=== PATIENT | female | born 1980 | race Caucasian/White ===

== ENCOUNTER → 2017-10-05 | Outpatient (CLI) | payer BC ==
[2016-01-08 17:33] VITALS: BMI 25.6
[~2017-10-05] MED LIST: ACE3 PO; AUG875 PO; IBU800 PO; IBUP800T37 PO; LOR5/325 PO; MELA5TAB15 SL; OMEG1600; TRAZ50TA34 PO
[2017-10-05 09:54] LABS: PLATELET COUNT, AUTOMATED 199 K/uL (150-450)
== END ==
LOC: LAB 09:12
PROVIDERS: ATTEND Obstetrics & Gynecology
DX: O09.529 Supervision of elderly multigravida, unspecified trimester (principal); R82.79 Other abnormal findings on microbiological examination of urine
CPT/HCPCS: 36415; 85025; 86592; 86762; 86850; 86900; 86901; 87088; 87340

== ENCOUNTER → 2017-10-20 | Outpatient (CLI) | payer BC ==
[2016-01-08 17:33] VITALS: BMI 25.6
[~2017-10-20] MED LIST changes: +PREN-127 PO
== END ==
LOC: LAB 10:16
PROVIDERS: ATTEND Obstetrics & Gynecology
DX: O09.529 Supervision of elderly multigravida, unspecified trimester (principal)
CPT/HCPCS: 87491; 87591

== ENCOUNTER → 2017-12-15 | Outpatient (CLI) | payer BC ==
[2016-01-08 17:33] VITALS: BMI 25.6
== END ==
LOC: LAB 07:14
PROVIDERS: ATTEND Internal Medicine Nephrology
DX: N04.9 Nephrotic syndrome with unspecified morphologic changes (principal); N00-N99 Diseases of the genitourinary system; I10 Essential (primary) hypertension; R80.9 Proteinuria, unspecified
CPT/HCPCS: 36415; 82040; 82310; 82374; 82435; 82565; 82570; 82947; 84100; 84132; 84156; 84295; 84520

== ENCOUNTER → 2018-02-08 | Outpatient (CLI) | payer BC ==
[2016-01-08 17:33] VITALS: BMI 25.6
[~2018-02-08] MED LIST changes: +DIPH0.5D12 IM; +FLU60SYR36 IM; +RHO(150015 IM
--- NOTE | 2018-02-08 11:50 | RADIOLOGY IMAGING REPORT ---
FACILITY: [facility] [place] PATIENT NAME: Radha Jack : 1980 MR: [id number] V: [id number] EXAM DATE: ORDERING PHYSICIAN: BRUCE ALANIZ TECHNOLOGIST: [place] [facility] [place]ha [place] : 1980 Visit/Account:[id number] Date of Sevice: 02/08/2018 [facility] OB LIMITED HISTORY: Supervision of high risk of elderly multigravida COMPARISON: October 20, 2017 TECHNIQUE: Transabdominal imaging was performed for assessment of the fetus and maternal pelvic s tructures. Transvaginal imaging was not performed. FINDINGS: Intrauterine gestations: One. presentation: Cephalic. heart rate: 135 bpm. Amniotic fluid volume: Normal; LUIS 11.48 cm; MVP 4.23 cm. Placenta: Anterior. Uterus: Gravid, otherwise grossly unremarkable where visualized. Maternal adnexa/ovaries: Grossly unremarkable, ovaries not visualized. Cervix: Not imaged. Gestational Parameters: BPD: 7.33 cm, 98th percentile HC: 26.62 cm, 67th percentile AC: 24.88 cm, 85th percentile FL: 5.47 cm, 74th percentile Average ultrasound age (AUA): 29 weeks/ one days Estimated age based on LMP: 27 weeks/ four days Estimated weight (EFW): 1326 grams +/- 194 grams Anatomic Survey: Anatomic survey was not performed. IMPRESSION: Single viable fetus in cephalic presentation with an estimated gestational age by measurements of 29 weeks one day. Estimated gestational age based on LMP is 27 weeks and four days. Estimated weight is 1326 g. LUIS 11.48 cm, MVP 4.23 cm Report Dictated By: Shonda Grove MD at 02/08/2018 11:23 AM Report E-Signed By: Shonda Grove MD at 02/08/2018 11:45 AM WSN:[email or web address]
== END ==
LOC: RAD 09:11
PROVIDERS: ATTEND Obstetrics & Gynecology
DX: O09.529 Supervision of elderly multigravida, unspecified trimester (principal); Z3A.29 29 weeks gestation of pregnancy

== ENCOUNTER → 2018-02-09 | Outpatient (CLI) | payer BC ==
[2016-01-08 17:33] VITALS: BMI 25.6
== END ==
LOC: LAB 08:09
PROVIDERS: ATTEND Obstetrics & Gynecology
DX: Z34.92 Encounter for supervision of normal pregnancy, unspecified, second trimester (principal)
CPT/HCPCS: 36415; 82950; 85027

== ENCOUNTER → 2018-02-12 | Outpatient (CLI) | payer BC ==
[2016-01-08 17:33] VITALS: BMI 25.6
[~2018-02-12] MED LIST changes: +BLOO-1511 MC; +BLOO-960 MC; +LANC-165
== END ==
LOC: LAB 08:18
PROVIDERS: ATTEND Obstetrics & Gynecology
DX: O99.810 Abnormal glucose complicating pregnancy (principal)
CPT/HCPCS: 36415; 82951; 82952

== ENCOUNTER 2018-02-16 14:17 | Outpatient (RCR) | payer BC ==
[2016-01-08 17:33] VITALS: BMI 25.6
--- NOTE | 2018-02-16 16:17 | Medical Nutrition Therapy ---
Nutrition/Food History Breakfast: cereal, toast with PB, sweetened almond milk Lunch: leftovers or sandwich Dinner: ~ 2oz meat, pasta 1/2c veg Snacks: PM and HS: granola bar, cheese, nuts, sweets Nutritional Education Nutrition Education Topic: Diabetic Nutrition (gestational) Learning Readiness: Interested Teaching Methods: Discussion, Handout, Demonstration Response to Teaching: Verbalize understanding Teaching Recipient: Patient Nutrition Counseling: Reviewed glycemic response to CHO. Reviewed CHO foods and provided meal plan of 30gm CHO brkft, 45-60gm CHO lunch and supper with 15-30gm CHO PM and HS snacks. Encouraged pt to try lower CHO range and increase if hungary and Bg is within acceptable range. Advised pt to write down food eaten prior to BG reading if readings are over desired range. This can help identify problem foods. encouraged pt to eating high fiber CHO and add protein and/or fat with meals and snacks to decrease glycemic response. Pt is to call for f/u if BG is above desired range or pt having problems with meals or glucometer. Nutrition Monitoring & Eval RD Patient Assessment Time: [address] Assessment Type: RD Education Nutritional Comment: Provided 60 minutes diabetic education focusing on nutrition Copies To Copies to: BRUCE ALANIZ MD ; BABATUNDE JOHNSON Feb 16, 2018 16:17
== END 2018-03-23 ==
LOC: DIET 14:17
PROVIDERS: ATTEND Obstetrics & Gynecology
DX: Z71.3 Dietary counseling and surveillance (principal); O24.419 Gestational diabetes mellitus in pregnancy, unspecified control
CPT/HCPCS: G0108 ×2

== ENCOUNTER → 2018-03-15 | Outpatient (CLI) | payer BC ==
[2016-01-08 17:33] VITALS: BMI 25.6
--- NOTE | 2018-03-15 16:07 | RADIOLOGY IMAGING REPORT ---
[place] [facility] [place]IENT NAME: Radha Jack : 1980 MR: [id number] V: [id number] EXAM DATE: ORDERING PHYSICIAN: KEN RODRIGUEZ TECHNOLOGIST: Location: [facility] Patient: Radha Jack : 1980 Visit/Account:[id number] Date of Sevice: 03/15/2018 [facility] OB LIMITED HISTORY: Evaluate growth COMPARISON: Ultrasound 02/08/2018 FINDINGS: Intrauterine gestations: 1 presentation: Cephalic heart rate: 136 bpm Amniotic fluid volume: LUIS 13.3 cm; MVP 5.0 cm Placenta: Anterior without previa or hemorrhage. Several placental lakes noted. Uterus: Gravid, otherwise normal Maternal adnexa: Negative Cervix: Os is closed. Cervical length of 4.1 cm. Gestational Parameters: BPD: 8.6 cm; 35 weeks/ 0 days HC: 31.4 cm; 35 weeks/ 2 days AC: 28.9 cm; 33 weeks/ 0 days FL: 6.4 cm; 33 weeks/ 3 days Average ultrasound age (AUA): 34 weeks/ 2 days Estimated weight (EFW): 2190 grams +/- 320 grams. 67th percentile based on LMP Anatomic Survey: Not performed IMPRESSION: 1. Single fetus in cephalic presentation with normal heart rate. 2. Anterior placenta without previa or hemorrhage. 3. Normal LUIS. 4. Mean ultrasound age of 34 weeks 2 days with normal expected growth. Predicted age from most recent ultrasound is 34 weeks 1 days. Clinical age is 32 weeks 4 days. Report Dictated By: Konrad Ceron MD at 03/15/2018 3:56 PM Report E-Signed By: Konrad Ceron MD at 03/15/2018 4:04 PM WSN:[id number]
== END ==
LOC: RAD 10:40
PROVIDERS: ATTEND Advanced Practice Midwife
DX: O09.529 Supervision of elderly multigravida, unspecified trimester (principal); Z3A.34 34 weeks gestation of pregnancy

== ENCOUNTER → 2018-04-09 | Outpatient (CLI) | payer MEDICAID ==
[2016-01-08 17:33] VITALS: BMI 25.6
== END ==
LOC: LAB 09:36
PROVIDERS: ATTEND Advanced Practice Midwife
DX: Z36.85 Encounter for antenatal screening for Streptococcus B (principal); Z3A.36 36 weeks gestation of pregnancy
CPT/HCPCS: 87081

== ENCOUNTER 2018-05-02 05:56 | Inpatient (IN) | payer SELFPAY ==
[~2018-05-02] VITALS: Ht 165.1 cm; Wt 74.8 kg
[2018-05-02] MEDS ORDERED: OXYTOCIN 30 UNIT/D5LR 500 ML 500 ML IV PRN (05:57)
[2018-05-02] MEDS ORDERED: FAMOTIDINE(*) 20MG/50ML PREMIX 50 ML IVPB PRN (05:57)
[2018-05-02] MEDS ORDERED: METOCLOPRAMIDE 10 MG/2 ML SDV IVP PRN (06:00)
[2018-05-02] MEDS ORDERED: LIDOCAINE/SOD BICARB 8.4% SYR SC PRN (06:00)
[2018-05-02] MEDS ORDERED: LIDOCAINE 1% LOCAL 300 MG/30ML INJ PRN (06:00)
[2018-05-02] MEDS ORDERED: fentaNYL CITR 100 MCG/2 ML AMP IVP PRN (06:00)
[2018-05-02] MEDS ORDERED: FLUSH 10 ML SYR IVP PRN (06:00)
[2018-05-02] MEDS ORDERED: PENICILLIN G 5 MILLUN/100 ML 100 ML IVPB ONE (06:05)
--- NOTE | 2018-05-02 06:07 | History & Physical ---
History of Present Illness Age of Patient: 37 : 5 Para or TPAL: 4 EDC per LMP: May 06, 2018 Estimated Gestational Age: 39.2 Chief Complaint Pt awoke this am and sat up and had a gush of clear fluid @ 0515. She is continuing to have clear fluid leak with some bloody mucus. The contractions started soon after that and are about every 5 minutes apart and crampy in her lower abdomen. She is able talk through them. She is GBS positive so she is here to receive PCN before active labor. She denies HERNANDEZ, vision changes, and RUQ pain. Her Brett is here and very supportive. Would like to walk after PCN dose and NST. History Patient's Blood Type: O Negative Rubella Status: Immune Group B Strep Screen: Positive Allergies: Coded Allergies: No Known Drug Allergies (Unverified , 06/26/11) Social History: No T/E/D Family History: Acidosis FATHER FH: bladder cancer Maternal Grandfather FH: breast cancer Grandmother (about 50 yo) FH: heart disease Paternal Grandfather High cholesterol MOTHER Med Rec Home Meds Active Scripts Lancets (Blood Lancets) 30 Gauge Each, EACH QID, #120 6 Refills Prov:BRUCE ALANIZ MD 02/12/18 Blood-Glucose Meter (BLOOD GLUCOSE METER) 1 Each Each, EACH MC, #1 Check FSBS QID Prov:BRUCE ALANIZ MD 02/12/18 Blood Sugar Diagnostic (GLUCOSE TEST STRIP) 1 Each Strip, 1 EACH MC QID, #100 STRIP 6 Refills FSBS fasting and 2 hours pp Prov:BRUCE ALANIZ MD 02/12/18 Reported Medications Vits W-Ca,Fe,Fa(<1MG) ( VITAMINS) 1 Each Tablet, 1 EACH PO DAILY, TAB 10/20/17 Melatonin (MELATONIN) 5 Mg Tab.subl, 5 MG SL 06/24/17 [place]-3/Dha/Epa/Fish Oil (Fish Oil 1,600 mg/5 ml Liquid) 1,600 Mg/5 Ml Liquid 06/24/17 Review of Systems Constitutional: No Fever Eyes: No Vision Change Cardiovascular: No Chest Pain Respiratory: No Shortness of Breath Gastrointestinal: No Nausea, No Vomiting, No Diarrhea; Abdominal Pain (contraction pain in lower abdomen) Psychiatric: No Depression, No Anxiety Exam General Exam General Apperance: Alert/Awake/No Acute Distress Neuro: No Gross deficits Eyes: Normal Extraocular Movement & Vison ENT: Normal Cardiovascular: Regular Rate and Rhythm Respiratory: No Respiratory Distress, Clear to Auscultation Abdomen: Gravid - Non-Tender, RUQ Non-Tender : Normal Musculoskeletal: No Weakness/Pain Extremities: No Cyanosis,Clubbing or Edema Integumentary: Skin Intact without Lesions or Rash Psychological: Alert & Oriented X3, Appropriate Mood & Affect Vaginal Discharge/Fluid?: Bloody Show, Clear Fluid Cervical Dialation: 7 Cervical Effacement (%): 100 Cervical Consistency: Soft Cervical Position: Anterior Station: 0 Presentation: Vertex Uterine Contractions(Q min): 5 Uterine Contraction Strength: Mild UC Resting Tone: Soft Fetus Feeling Movement?: Yes Estimated Weight(grams): 3500 Heart Tones: 135 Heart Tone Variabilty: Moderate FHT Accelerations: 15X15 FHT Decelerations: None Assessment and Plan Hospital Day: 1 ACQUISITION SPECIALIST Assessment: Stable ACQUISITION SPECIALIST Plan: Routine Labor Care Problems: (1) PROM with onset of labor within 24 hours of rupture Assessment & Plan: BR is a 37 y.o. at 39w2d wks with an Estimated Date of Delivery: 05/06/18 dated by LMP and first trimester US here for PROM @ 0515 with contractions starting shorting after Labor state: Active labor, Encourage ambulation and ambulation to promote labor progression well-being: Category I FHT: Intermittent monitoring for low risk Maternal well-being: VSS, afebrile and normotensive, SROM @ home for clear large amount of fluid @ 0515 PNL: GBS positive: PCN started as soon as pt arrived, Type/Rh O-, received Rhophylac in Nov, plan for re-dose , rubella immune Pain Management: Unmedicated, plans to ambulate and then hydrotherapy, coping well and talking through contractions Feed: Breast c/b: * A1GDM Anticipate progression to active labor and NSVB, re-evaluate in 2-3 hours or prn (2) Positive GBS test Status: Acute Assessment & Plan: Treat with PCN once patient arrives and then in Q 4 hours Problem Qualifiers (1) PROM with onset of labor within 24 hours of rupture: PROM gestational age: full term Qualified Codes: O42.02 - Full-term premature rupture of membranes, onset of labor within 24 hours of rupture KEN RODRIGUEZ CNM May 02, 2018 06:07
[2018-05-02 06:30] VITALS: BP 130/91; Ht 165.1 cm; Wt 74.8 kg
[2018-05-02] MEDS: LR(*) 1000 ML BAG 1,000 ML IV SCH ×2 (06:38→15:57)
[2018-05-02 07:04] LABS: PLATELET COUNT, AUTOMATED 128 K/uL (150-450)
[2018-05-02] MEDS ORDERED: PENICILLIN G 2.5 MILLUN/100 ML 100 ML IVPB SCH (10:00)
[2018-05-02 11:06] VITALS: BP 112/68
--- NOTE | 2018-05-02 11:06 | OB Delivery Note ---
Delivery Note Vaginal Delivery Type: Spont. Vaginal Delivery Delivery Date: May 02, 2018 Delivery Time: 09:49 Estimated Gestational Age(wks): 37.3 Delivery Anesthesia: Other (hydrotherapy) Infant Sex: Male Apgars: 1 Minute, 5 Minute Repair Needed: Perineal, 2nd Degree Estimated Blood Loss: 400 Notes: BR is a 37 yo G5 now P5 who came in at 37 3/7 weeks with OOC on 05/02/18 at 0515 after SROM at home @ 0515 for a clear large amount of fluid. Pt was admitted to the family care unit @ 0603 with active labor Cervical exam on admission was 7/100/0. She had SROM on 05/02/18 at 0515 for large amount of fluid. Pt was GBS positive and and received one dose of PCN when she arrived. FHR was CAT I primarily throughout first stage. Pt utilized hydrotherapy and controlled breathing for pain management. Pt was completely dilated on 05/02/18 at 0940 and pt began pushing at 0945. At 0949 pt had a NSVB of live male APGARS 8/9. The head delivered spontaneously in the OA position and restituted HONEY with no nuchal cord. The anterior shoulder was delivered a traumatically and the posterior shoulder followed. Body delivered easily. Face was wiped and then placed on the maternal chest. The infant was dried and stimulated and noted to have a spontaneous cry and spontaneous movement of all 4 extremities. Cord was clamped X 2 by CNM after 3 minutes and cut by patient's spouse. Mother was on the birthing stool. At 0956 the placenta and membranes delivered spontaneous and intact with a 3 vessel cord after gentle downward traction and maternal push. 30 units of Pitocin was placed in 500cc IV to firm the uterus and started immediately after placenta d elivery. Upon inspection of the perineum a second degree midline laceration was noted and repaired using 3.0 Vicryl under 1% lidocaine. Hemostasis observed. EBL 400 with fundus firm 2 below the U with minimal bleeding. Mom and baby were left in stable condition. imitated and a good latch was observed. Slightly elevated BP's before and with history of IGA nephropathy will order a BMP to review her creatine per Dr. Giles "I personally examined the patient and there are no unintended foreign objects in the vagina and all sponge and lap counts were correct." Kathia Elias CNM was present throughout the entire delivery as well Dr. Ariane Bernardbrook [employer]atch Plant Operator in Attendence: KATHIA Peñaloza CNM May 02, 2018 11:06
[2018-05-02] MEDS ORDERED: APAP/HYDROCODONE 325/5 TAB PO PRN (11:10)
[2018-05-02] MEDS ORDERED: LANOLIN OINT 7 GM TUBE TP PRN (11:10)
[2018-05-02] MEDS ORDERED: BENZOCAINE 20% 60 ML BTL TP PRN (11:10)
[2018-05-02] MEDS: IBUPROFEN 800 MG TAB PO SCH ×2 (11:10→18:53)
[2018-05-02] MEDS: DOCUSATE CALCIUM 240 MG CAP PO SCH ×2 (11:10→21:12)
[2018-05-02] MEDS ORDERED: HYDROCORTISONE 2.5% CR 30GM TB PR PRN (11:10)
[2018-05-02] MEDS ORDERED: MAGNESIUM HYDROXIDE* 30ML UDCP PO PRN (11:10)
[2018-05-02] MEDS ORDERED: GLYCERIN/WITCH HAZEL LEAF 1 PK TP PRN (11:10)
[2018-05-02] MEDS ORDERED: ACETAMINOPHEN 325 MG TAB PO PRN (11:10)
[2018-05-02 12:07] VITALS: BP 112/60
[2018-05-02] MEDS ORDERED: LIDOCAINE 1% LOCAL 300 MG/30ML 30 ML ONE (14:23)
[2018-05-02 20:28] VITALS: BP 112/60
[2018-05-02 23:16] VITALS: BP 109/52
[2018-05-03 03:18] VITALS: BP 94/56
[2018-05-03] MEDS: IBUPROFEN 800 MG TAB PO SCH ×2 (04:35→11:00)
[2018-05-03 07:30] VITALS: BP 116/58
[2018-05-03] MEDS: DOCUSATE CALCIUM 240 MG CAP PO SCH (09:00)
--- NOTE | 2018-05-03 12:47 | OB/GYN Discharge Summary ---
Discharge Summary Reason for Hosp/Final Diag: (1) PROM with onset of labor within 24 hours of rupture Status: Resolved (2) Positive GBS test Status: Acute (3) care and examination immediately after delivery Onset Date: ~ 05/02/2018 Status: Acute Hospital Course & Plan: BR is a 37 yo G6 now P5 who came in at 37 3/7 weeks with OOC on 05/02/18 at 0515 after SROM at home @ 0515 for a clear large amount of fluid. Pt was admitted to the family care unit @ 0603 on 05/02/18 in active labor Cervical exam on admission was 7/100/0. She had SROM on 05/02/18 at 0515 for large amount of fluid. Pt was GBS positive and she received one dose of PCN when she arrived before the of a viable male at 0949. FHR was CAT I primarily throughout first stage. Pt utilized hydrotherapy and controlled krzysztof athing for pain management. Pt was not adequately treated with antibiotics before delivery, so baby will stay 48 hours for observation. Baby also tested roderick positive so is under the bili lights with plan for discharge tomorrow. Pt is feeling well today. She has minimal pain with Ibuprofen and has moderate bleeding w/o clots. She denies HERNANDEZ, vision changes, RUQ pain. BP has been within normal limits since . She is with a good latch, but has never had a good experience once going home. We discussed calling public health for a home visit to aide in adequate support once home. She denies anxiety and depressive symptoms now, but does feel like she has had it with each of her babies. They plan to use condoms and then her will probably get a vasectomy if they are done having children. We reviewed pre E, UTI, mastitis, endometritis, DVTs, anxiety and depressive symptoms, and bleeding precautions. We will watch her anxiety/depression symptoms closely considering her history. Plan to come back for f/u in 2 week and then at 6 weeks. Lates Vital Signs Vital Signs Date Time Temp Pulse Resp B/P (MAP) Pulse Ox O2 Delivery O2 Flow Rate FiO2 05/03/18 07:30 97.2 76 16 116/58 (77) 93 Room Air Weight (Pounds): 165 Result Diagram: 05/03/18 0620 05/02/18 0000 Condition: Improved Discharge: Home Home Meds Active Scripts Lancets (Blood Lancets) 30 Gauge Each, EACH QID, #120 6 Refills Prov:BRUCE ALANIZ MD 02/12/18 Blood-Glucose Meter (BLOOD GLUCOSE METER) 1 Each Each, EACH , #1 Check FSBS QID Prov:BRUCE ALANIZ MD 02/12/18 Blood Sugar Diagnostic (GLUCOSE TEST STRIP) 1 Each Strip, 1 EACH MC QID, #100 STRIP 6 Refills FSBS fasting and 2 hours pp Prov:BRUCE ALANIZ MD 02/12/18 Reported Medications Vits W-Ca,Fe,Fa(<1MG) ( VITAMINS) 1 Each Tablet, 1 EACH PO DAILY, TAB 10/20/17 Melatonin (MELATONIN) 5 Mg Tab.subl, 5 MG SL 06/24/17 [place]-3/Dha/Epa/Fish Oil (Fish Oil 1,600 mg/5 ml Liquid) 1,600 Mg/5 Ml Liquid 06/24/17 Follow up Referrals: SENIOR CONTROLS ENGINEER @ [facility] with KEN RODRIGUEZ CNM Discharge Diet: As Tolerates, Resume Prior Admit Diet Discharge Activity: As Tolerates, Pelvic Rest Problem Qualifiers (1) PROM with onset of labor within 24 hours of rupture: PROM gestational age: full term Qualified Codes: O42.02 - Full-term premature rupture of membranes, onset of labor within 24 hours of rupture KEN RODRIGUEZ CNM May 03, 2018 12:47
== END 2018-05-03 14:55 | disposition home or self-care (01) | DRG 807 ==
LOC: OB 05:56
PROVIDERS: ADMIT Obstetrics & Gynecology; ATTEND Obstetrics & Gynecology
PROC: 10E0XZZ Delivery of Products of Conception, External Approach (ICD-10-PCS; principal; 2018-05-02)
PROC: 0KQM0ZZ Repair Perineum Muscle, Open Approach (ICD-10-PCS; 2018-05-02)
DX: O99.824 Streptococcus B carrier state complicating childbirth (principal); Z37.0 Single live birth; Z3A.39 39 weeks gestation of pregnancy; O42.02 Full-term premature rupture of membranes, onset of labor within 24 hours of rupture; O70.1 Second degree perineal laceration during delivery
CPT/HCPCS: 36415; 36416; 82310; 82374; 82435; 82565; 82947; 82948; 84132; 84295; 84520; 85025; 85027; 86703; 86850; 86900; 86901; J2540; J7120